=== PATIENT | male | born 1995 | race Hispanic/Latino ===

== ENCOUNTER 2017-10-11 13:48 | Emergency (ER) | payer OTHER ==
[~2017-10-11] VITALS: Ht 157.5 cm; Wt 70.3 kg
[~2017-10-11 13:48] MED LIST: HYDROXYZINE50 MG PO; PREDNISONE 10MG10 M1 PO
[2017-10-11 13:51] VITALS: BP 133/81
[2017-10-11 14:25] LABS: ABSOLUTE BASOPHIL COUNT 0 /CUMM (0.0-0.2); ABSOLUTE EOSINOPHIL COUNT 0 /CUMM (0.0-0.7); ABSOLUTE GRANULOCYTE CT 9.8 /CUMM (1.4-6.5); ABSOLUTE LYMPH COUNT 0.3 /CUMM (1.2-3.4); ABSOLUTE MONOCYTE COUNT 0.4 /CUMM (0.10-0.60); BASOPHIL % 0 % (0.0-2.0); EOSINOPHIL % 0.3 % (0-5); GRANULOCYTE % 92.7 % (42.2-75.2); HEMATOCRIT 49.3 % (42-52); MEAN CORPUSCULAR HGB CONC 34.1 G/DL (33.0-37.0); MEAN CORPUSCULAR VOLUME 85.1 FL (80.0-94.0); MEAN PLATELET VOLUME 8.1 FL (7.4-10.4); PLATELET COUNT 243 /CUMM (130-400); RBC DISTRIBUTION WIDTH 12.8 % (11.5-14.5); WHITE BLOOD CELL COUNT 10.5 /CUMM (4.8-10.8)
--- NOTE | 2017-10-11 14:37 | ED GI/GU/ABDOMINAL COMPLAINT ---
History of Present Illness General Chief Complaint: General Adult Stated Complaint: N/V/D Source: patient, old records Exam Limitations: no limitations Vital Signs & Intake/Output Vital Signs & Intake/Output Vital Signs Date Time Temp Pulse Resp B/P B/P Pulse O2 O2 Flow FiO2 Mean Ox Delivery Rate 10/11 1351 98.6 96 20 133/81 97 Room Air Allergies Uncoded Allergies: AIR BORNE ALLERGIES (Severe, NOSE ITCHING, WATERY EYES 09/26/11) Reconcile Medications Ondansetron (Zofran Odt) 4 MG TAB.RAPDIS 1 TAB SL TID PRN NAUSEA Triage Note: PT C/O ABDOMINAL PAIN WITH N/V/D SINCE 0200. PT STATES UNABLE TO KEEP WATER DOWN. PT STATES PAIN IS IN RUQ TO MID ABDOMEN AND IS CONSTANT Triage Nurses Notes Reviewed? yes Onset: Abrupt Duration: hour(s): (12), constant Timing: recent history Quality/Severity: vomiting Severity Numbers: 4 Location: generalized abdomen Radiation: no radiation Activities at Onset: sleep Prior Abdominal Problems: none Modifying Factors: Worsens With: eating. Associated Symptoms: nausea/vomiting HPI: 22-year-old male with no medical history presents to ER for evaluation complaining of nausea vomiting and diarrhea since 2 AM this morning it awoke him from sleep. He reports his mom is been sick with similar symptoms. He denies any black or bloody stools no hematemesis. He denies tobacco or alcohol use. No history of abdominal surgeries in the past. He's been attempting to take sips of water however is been feeling nauseous. The patient states that from all the dry heaving and retching he is now having right upper quadrant epigastric pain. Nothing makes it better or worse or is no radiation of the symptoms. No urinary urgency frequency dysuria. (Silvino Lombardo) Past History Travel History Traveled to [place] past 21 day No Medical History Any Pertinent Medical History? 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 No (Silvino Lombardo) Review of Systems Review of Systems Constitutional: Reports: see HPI. Comments Review of systems: See HPI, All other systems negative. Constitutional, no chills no fever, HEENT: no sore throat no congestion Cardiovascular: No chest pain , Skin: no rashes, no change in skin Respiratory: No dyspnea no cough no sputum GI: SEE HPI : No dysuria No hematuria, no frequency Muscle skeletal: No joint pain, no back pain, Neurologic: , no headache Heme/endocrine: No bruising no bleeding Immunology: No lymphadenopathy (Silvino Lombardo) Physical Exam Physical Exam General Appearance: well developed/nourished, no apparent distress, alert, awake Gastrointestinal: soft Comments: Well-developed well-nourished person in no acute distress HEENT: Normal EENT exam; PERRL, EOMI, HEAD is atraumatic. moist mucous membranes. Neck: Supple, normal range of motion Back: Nontender, no CVA tenderness. Full range of motion Cardiovascular: Regular rate and rhythms no murmurs rubs Respiratory: No respiratory distress. Patient speaking in full complete sentences. Breath sounds clear to auscultation bilaterally: NO W/R/R Abdomen: Soft, nontender, neg murphsy sin, nondistended, Normal bowel sounds, no rebound or guarding Extremity: No edema, full range of motion of extremities Neuro: Alert oriented x3, motor sensory normal. There were no obvious focal neurologic abnormalities. Skin: No appreciable rash on exposed skin, skin is warm and dry. Psych: Mood and affect is normal, memory and judgment is normal. Core Measures ACS in differential dx? No Sepsis Present: No Sepsis Focused Exam Completed? No (Silvino Lombardo) Progress Differential Diagnosis: appendicitis, biliary colic, bowel obstruction, cholecystitis, gastritis, hepatitis, inflamm bowel dis, gastroenteritis Plan of Care: Orders Procedure Date/time Status LIPASE 10/11 1359 Complete COMPREHENSIVE METABOLIC PANEL 10/11 1359 Complete CBC WITHOUT DIFFERENTIAL 10/11 1359 Complete Laboratory Tests 10/11/17 1417: Anion Gap 12, Estimated GFR > 60, BUN/Creatinine Ratio 18.8, Glucose 119 H, Calcium 10.1, Total Bilirubin 0.9, AST 38, ALT 82 H, Alkaline Phosphatase 100, Total Protein 8.0, Albumin 5.0, Globulin 3.0, Albumin/Globulin Ratio 1.7, Lipase 38, CBC w Diff MAN DIFF ORDERED, RBC 5.80, MCV 85.1, MCH 29.0, RDW 12.8, MPV 8.1 , Gran % 92.7 H, Lymphocytes % 2.9 L, Monocytes % 4.1, Eosinophils % 0.3, Basophils % 0, Absolute Granulocytes 9.8 H, Segmented Neutrophils 86 H, Absolute Lymphocytes 0.3 L, Lymphocytes 7 L, Monocytes 4, Absolute Monocytes 0.4, Absolute Eosinophils 0, Basophils 3 H, Absolute Basophils 0, Platelet Estimate ADEQUATE, Poikilocytosis 1+, Stomatocytes RARE, PUBS MCHC 34.1, Fld Total RBCs Counted 100 Labs ordered patient make you of IV fluids Zofran 4 IV, he denies pain I discussed with patient at length all of his lab results abdomen remains soft nontender there is no pain. Patient feeling improved after IV fluids. Tolerating by mouth challenge without vomiting. He's had no episodes of diarrhea here in the department. I discussed with the patient at length all of their results. I had an extensive conversation regarding need for close follow up with their primary care physician this week as well as return precautions. I answered all of their questions, they feel comfortable with the plan and follow-up care. I discussed with the patient/family the medications that they will receive. I gave them signs and symptoms that could indicate an adverse reaction. I have advised them to limit their activities until they can see how they respond to the medication. Initial ED EKG: none (Silvino Lombardo) Departure Departure Time of Disposition: 1555 Disposition: HOME OR SELF CARE Condition: Stable Clinical Impression Primary Impression: Nausea vomiting and diarrhea Referrals: Jasson Bess APRN (PCP/Family) Additional Instructions: Zofran for nausea clear liquids advance diet as tolerated. Follow-up with your primary care physician this week return to the emergency room anytime sooner with any concerns or worsening of your symptoms despite medication. Departure Forms: Customer Survey General Discharge Information Prescriptions: Current Visit Scripts Ondansetron (Zofran Odt) 1 TAB SL TID PRN NAUSEA #15 TAB (Silvino Lombardo) PA/INVENTORY TRANSCRIBER Co-Sign Statement Statement: ED Attending supervision documentation- [] I saw and evaluated the patient. I have also reviewed all the pertinent lab results and diagnostic results. I agree with the findings and the plan of care as documented in the PA's/INVENTORY TRANSCRIBER's documentation. [X] I have reviewed the ED Record and agree with the PA's/INVENTORY TRANSCRIBER's documentation. [] Additions or exceptions (if any) to the PAs/INVENTORY TRANSCRIBER's note and plan are summarized below: [] (Michelle MAY,Ubaldo Benito)
[2017-10-11] MEDS ORDERED: ZOFRAN ODT4 M1 SL (15:55)
== END 2017-10-11 16:37 ==
LOC: ERH 13:48
PROVIDERS: Physician Assistant Medical
DX: R11.2 Nausea with vomiting, unspecified (principal); R19.7 Diarrhea, unspecified
CPT/HCPCS: 96361; 96374; J2405